=== PATIENT | female | born 1970 | race Caucasian/White ===

== ENCOUNTER 2019-10-03 09:48 | Emergency (ER) | payer BC, OTHER ==
[2019-10-03] MEDS ORDERED: Ketorolac 30 MG/ML SDV IVPUSH ONE (10:12)
[2019-10-03] MEDS ORDERED: Sodium Chloride 0.9% 1,000 ML IV ONE (10:12)
--- NOTE | 2019-10-03 10:23 | EDM.PDOC ---
ED HPI GENERAL MEDICAL PROBLEM - General Chief Complaint: [employer] Problem Stated Complaint: ABDOMINAL PAIN, BLEEDING Time Seen by Provider: 10/03/19 10:03 Source of Information: Reports: Patient History Limitations: Reports: No Limitations - History of Present Illness INITIAL COMMENTS - FREE TEXT/NARRATIVE: HISTORY AND PHYSICAL: History of present illness: Patient is a 49-year-old female who presents to the emergency room today with complaints of lower abdominal pain and heavy vaginal bleeding. She states this morning she started having some right lower quadrant pain/cramping and noticed vaginal bleeding. She states she saturated a heavy tampon within an hour and a half and noticed large clots in the toilet. She states she has not had a menstrual periods since August, decided take a test which was negative at home. Previously had normal menses. She did call her [employer] in [place] who rem commended she come to the emergency room to have an ultrasound and lab work. Patient has a history of an appendectomy, tubal ligation Review of systems: As per history of present illness and below otherwise all systems reviewed and negative. Past medical history: As per history of present illness and as reviewed below otherwise noncontributory. Surgical history: As per history of present illness and as reviewed below otherwise noncontributory. Social history: See social history for further information Family history: As per history of present illness and as reviewed below otherwise noncontributory. Physical exam: General: Well-developed and well-nourished 49-year-old female. Alert and oriented. Nontoxic-appearing and in no acute distress. HEENT: Atraumatic, normocephalic, pupils equal and reactive bilaterally, negative for conjunctival pallor or scleral icterus, mucous membranes moist, nontender, trachea midline. No drooling or trismus noted. No meningeal signs. No hot potato voice noted. Lungs: Clear to auscultation, breath sounds equal bilaterally, chest nontender. Heart: S1S2, regular rate and rhythm without overt murmur Abdomen: Soft, nondistended, mild right lower quadrant tenderness. Negative for masses or hepatosplenomegaly. Mild right sided costovertebral tenderness. Skin: Intact, warm, dry. No lesions or rashes noted. Extremities: Atraumatic, moves all extremities per self without difficulty or deficits, negative for cords or calf pain. Neurovascular unremarkable. Neuro: Awake, alert, oriented. Cranial nerves II through XII unremarkable. Cerebellum unremarkable. Motor and sensory unremarkable throughout. Exam nonfocal. Notes: Lab work is unremarkable with the exception of hypokalemia. She states she does not have any history of low potassium. Will supplement with a few days worth of K-Dur. Ultrasound shows 2.9 simple centimeter cyst on the right ovary. Patient states she has an [employer] in [place] whom she will follow up with this week. She states she has been taking ibuprofen and Tylenol routinely and is requesting something stronger for nighttime use. Medication education and supportive care measures were reviewed and discussed. Signs and symptoms that would prompt her to return to the emergency department were reviewed and discussed. Voices understanding and is agreeable to plan of care. Denies any further questions or concerns at this time. Diagnostics: CBC, CMP, UA, HCG, Pelvic ultrasound Therapeutics: IV fluid, Toradol Prescription: Diclofenac Vahid Impression: Ovarian cyst, Right Dysfunctional uterine bleeding Hypokalemia Plan: 1. Your lab work was normal with the exception of low potassium; please take the potassium replacement as directed and have this rechecked within the next few weeks. Your ultrasound showed a 2.9cm simple cyst on your right ovary; otherwise unremarkable. Please follow up with your OBGYN to have this re- evaluated along with your dysfucntional uterine bleeding. 2. Tylenol as needed for pain. Diclofenac as directed over the next few days. Do not take any additional NSAIDs such as ibuprofen or Aleve. [place] moderate to severe pain, reserve for nighttime use as this medication may cause drowsiness. 3. Return to the ED as needed and as discussed. Definitive disposition and diagnosis as appropriate pending reevaluation and review of above. Right Lower Abdominal Pain Score (Numeric/FACES): 10 - Related Data Allergies Allergy/AdvReac Type Severity Reaction Status Date / Time Penicillins Allergy Anaphylactic Verified 10/03/19 10:06 Shock Home Meds: Home Meds ALPRAZolam [Alprazolam] 0.5 mg PO BID 10/03/19 [History] Chlorthalidone 25 mg PO DAILY 10/03/19 [History] Diclofenac Sodium 50 mg PO TID PRN #20 tablet. 10/03/19 [Rx] Levothyroxine 75 mcg PO DAILY 10/03/19 [History] Losartan [Cozaar] 50 mg PO DAILY 10/03/19 [History] Phentermine HCl 37.5 mg PO DAILY 10/03/19 [History] Potassium Chloride [K-Tab ER] 20 meq PO BID 5 Days #10 tablet.er 10/03/19 [Rx] Rosuvastatin [Crestor] 5 mg PO DAILY 10/03/19 [History] traMADol [Ultram] 50 mg PO Q4H PRN #20 tab 10/03/19 [Rx] Past Medical History Cardiovascular History: Reports: High Cholesterol Psychiatric History: Reports: Anxiety - Infectious Disease History Infectious Disease History: Reports: None - Past Surgical History GI Surgical History: Reports: Appendectomy, Cholecystectomy Female Surgical History: Reports: Section, Tubal Ligation, Other ( See Below) Other Female Surgeries/Procedures: tubal reversal. eptopic Dermatological Surgical History: Reports: Other (See Below) Social & Family History - Family History Family Medical History: Noncontributory - Tobacco Use Smoking Status *Q: Never Smoker - Caffeine Use Caffeine Use: Reports: Coffee - Recreational Drug Use Recreational Drug Use: No ED ROS GENERAL - Review of Systems Review Of Systems: Comprehensive ROS is negative, except as noted in HPI. ED EXAM, RENAL/ - Physical Exam Exam: See Below (See dictation) Course - Vital Signs Last Recorded V/S: Last Vital Signs Temp 98.3 F 10/03/19 10:04 Pulse 88 10/03/19 10:04 Resp 18 10/03/19 10:04 BP 133/94 H 10/03/19 10:04 Pulse Ox 96 10/03/19 10:04 - Orders/Labs/Meds Orders: Active Orders 24 hr Category Date Time Status CULTURE URINE [RM] Stat Lab 10/03/19 10:00 Received Labs: Laboratory Tests 10/03/19 10/03/19 10/03/19 Range/Units 10:00 11:05 11:05 WBC 8.36 (4.0-11.0) K/uL RBC 3.94 L (4.30-5.90) M/uL Hgb 13.0 (12.0-16.0) g/dL Hct 38.7 (36.0-46.0) % MCV 98.2 H (80.0-98.0) fL MCH 33.0 H (27.0-32.0) pg MCHC 33.6 (31.0-37.0) g/dL RDW Std Deviation 45.1 (28.0-62.0) fl RDW Coeff of Cari 13 (11.0-15.0) % Plt Count 328 (150-400) K/uL MPV 9.40 (7.40-12.00) fL Neut % (Auto) 66.5 (48.0-80.0) % Lymph % (Auto) 19.3 (16.0-40.0) % [place] % (Auto) 9.2 (0.0-15.0) % Eos % (Auto) 4.8 (0.0-7.0) % Baso % (Auto) 0.2 (0.0-1.5) % Neut # (Auto) 5.6 (1.4-5.7) K/uL Lymph # (Auto) 1.6 (0.6-2.4) K/uL [place] # (Auto) 0.8 (0.0-0.8) K/uL Eos # (Auto) 0.4 (0.0-0.7) K/uL Baso # (Auto) 0.0 (0.0-0.1) K/uL Nucleated RBC % 0.0 /100WBC Nucleated RBCs # 0 K/uL Sodium 140 (136-145) mmol/L Potassium 2.9 L (3.5-5.1) mmol/L Chloride 99 (98-107) mmol/L Carbon Dioxide 29.9 (21.0-32.0) mmol/L BUN 14 (7.0-18.0) mg/dL Creatinine 0.8 (0.6-1.0) mg/dL Est Cr Clr Drug Dosing 65.80 mL/min Estimated GFR (MDRD) > 60.0 ml/min Glucose 105 (74-106) mg/dL Calcium 9.7 (8.5-10.1) mg/dL Total Bilirubin 0.4 (0.2-1.0) mg/dL AST 22 (15-37) IU/L ALT 38 (14-63) IU/L Alkaline Phosphatase 67 (46-116) U/L Total Protein 7.6 (6.4-8.2) g/dL Albumin 4.1 (3.4-5.0) g/dL Globulin 3.5 (2.6-4.0) g/dL Albumin/Globulin Ratio 1.2 (0.9-1.6) HCG, Qual (NEG) Urine Color YELLOW Urine Appearance CLOUDY Urine pH 7.5 (5.0-8.0) Ur Specific [place] 1.010 (1.001-1.035) Urine Protein NEGATIVE (NEGATIVE) mg/dL Urine Glucose (UA) NEGATIVE (NEGATIVE) mg/dL Urine Ketones NEGATIVE (NEGATIVE) mg/dL Urine Occult Blood LARGE H (NEGATIVE) Urine Nitrite NEGATIVE (NEGATIVE) Urine Bilirubin NEGATIVE (NEGATIVE) Urine Urobilinogen 0.2 (<2.0) EU/dL Ur Leukocyte Esterase SMALL H (NEGATIVE) Urine RBC 2-5 (0-2/HPF) Urine WBC 0-1 (0-5/HPF) Ur Epithelial Cells OCCASIONAL (NONE-FEW) Urine Bacteria RARE (NEGATIVE) 10/03/19 Range/Units 11:05 WBC (4.0-11.0) K/uL RBC (4.30-5.90) M/uL Hgb (12.0-16.0) g/dL Hct (36.0-46.0) % MCV (80.0-98.0) fL MCH (27.0-32.0) pg MCHC (31.0-37.0) g/dL RDW Std Deviation (28.0-62.0) fl RDW Coeff of Cari (11.0-15.0) % Plt Count (150-400) K/uL MPV (7.40-12.00) fL Neut % (Auto) (48.0-80.0) % Lymph % (Auto) (16.0-40.0) % [place] % (Auto) (0.0-15.0) % Eos % (Auto) (0.0-7.0) % Baso % (Auto) (0.0-1.5) % Neut # (Auto) (1.4-5.7) K/uL Lymph # (Auto) (0.6-2.4) K/uL [place] # (Auto) (0.0-0.8) K/uL Eos # (Auto) (0.0-0.7) K/uL Baso # (Auto) (0.0-0.1) K/uL Nucleated RBC % /100WBC Nucleated RBCs # K/uL Sodium (136-145) mmol/L Potassium (3.5-5.1) mmol/L Chloride (98-107) mmol/L Carbon Dioxide (21.0-32.0) mmol/L BUN (7.0-18.0) mg/dL Creatinine (0.6-1.0) mg/dL Est Cr Clr Drug Dosing mL/min Estimated GFR (MDRD) ml/min Glucose (74-106) mg/dL Calcium (8.5-10.1) mg/dL Total Bilirubin (0.2-1.0) mg/dL AST (15-37) IU/L ALT (14-63) IU/L Alkaline Phosphatase (46-116) U/L Total Protein (6.4-8.2) g/dL Albumin (3.4-5.0) g/dL Globulin (2.6-4.0) g/dL Albumin/Globulin Ratio (0.9-1.6) HCG, Qual NEGATIVE (NEG) Urine Color Urine Appearance Urine pH (5.0-8.0) Ur Specific [place] (1.001-1.035) Urine Protein (NEGATIVE) mg/dL Urine Glucose (UA) (NEGATIVE) mg/dL Urine Ketones (NEGATIVE) mg/dL Urine Occult Blood (NEGATIVE) Urine Nitrite (NEGATIVE) Urine Bilirubin (NEGATIVE) Urine Urobilinogen (<2.0) EU/dL Ur Leukocyte Esterase (NEGATIVE) Urine RBC (0-2/HPF) Urine WBC (0-5/HPF) Ur Epithelial Cells (NONE-FEW) Urine Bacteria (NEGATIVE) Meds: Medications Discontinued Medications Generic Name Dose Route Start Last Admin Trade Name Freq PRN Reason Stop Dose Admin Sodium Chloride 1,000 mls @ 999 mls/hr 10/03/19 10:12 10/03/19 11:01 Normal Saline IV 10/03/19 11:12 999 mls/hr STAT ONE Administration Ketorolac Tromethamine 30 mg 10/03/19 10:12 10/03/19 11:01 Toradol IVPUSH 10/03/19 10:13 30 mg ONETIME ONE Administration Potassium Chloride 40 meq 10/03/19 11:51 10/03/19 12:17 Klor-Con M20 PO 10/03/19 11:52 40 meq ONETIME ONE Administration Departure - Departure Time of Disposition: 12:15 Disposition: Home, Self-Care 01 Clinical Impression: Dysfunctional uterine bleeding, Hypokalemia Ovarian cyst Qualifiers: Laterality: right Qualified Code(s): N83.201 - Unspecified ovarian cyst, right side - Discharge Information Prescriptions: Diclofenac Sodium 50 mg PO TID PRN #20 tablet.dr PRN Reason: Pain Potassium Chloride [K-Tab ER] 20 meq PO BID 5 Days #10 tablet.er traMADol [Ultram] 50 mg PO Q4H PRN #20 tab PRN Reason: Pain Instructions: Hypokalemia, Ovarian Cyst, [id number], Dysfunctional Uterine Bleeding Referrals: Slime Thomas MD [Primary Care Provider] - Forms: ED Department Discharge Additional Instructions: The following information is given to patients seen in the emergency department who are being discharged to home. This information is to outline your options for follow-up care. We provide all patients seen in our emergency department with a follow-up referral. The need for follow-up, as well as the timing and circumstances, are variable depending upon the specifics of your emergency department visit. If you don't have a primary care physician on staff, we will provide you with a referral. We always advise you to contact your personal physician following an emergency department visit to inform them of the circumstance of the visit and for follow-up with them and/or the need for any referrals to a consulting specialist. The emergency department will also refer you to a specialist when appropriate. This referral assures that you have the opportunity for follow-up care with a specialist. All of these measure are taken in an effort to provide you with optimal care, which includes your follow-up. Under all circumstances we always encourage you to contact your private physician who remains a resource for coordinating your care. When calling for follow-up care, please make the office aware that this follow-up is from your recent emergency room visit. If for any reason you are refused follow-up, please contact the [facility] at and asked to speak to the emergency department charge nurse. [facility] [address] [place] [id number] [facility] [address] [place] [id number] 1. Your lab work was normal with the exception of low potassium; please take the potassium replacement as directed and have this rechecked within the next few weeks. Your ultrasound showed a 2.9cm simple cyst on your right ovary; otherwise unremarkable. Please follow up with your OBGYN to have this re- evaluated along with your dysfunctional uterine bleeding (Your OB may want to start you on hormone therapy). 2. Tylenol as needed for pain. Diclofenac as directed over the next few days. Do not take any additional NSAIDs such as ibuprofen or Aleve. [place] moderate to severe pain, reserve for nighttime use as this medication may cause drowsiness. 3. Return to the ED as needed and as discussed. Sepsis Event Note - Evaluation Sepsis Screening Result: No Definite Risk - Focused Exam Vital Signs: Vital Signs Temp Pulse Resp BP Pulse Ox 10/03/19 10:04 98.3 F 88 18 133/94 H 96 Date Exam was Performed: 10/03/19 Time Exam was Performed: 12:56 - My Orders Last 24 Hours: My Active Orders 10/03/19 10:00 CULTURE URINE [RM] Stat - Assessment/Plan Last 24 Hours: My Active Orders 10/03/19 10:00 CULTURE URINE [RM] Stat
[2019-10-03 11:45] LABS: BLOOD UREA NITROGEN,BUN 14 mg/dL (7.0-18.0); CARBON DIOXIDE,CO2 29.9 mmol/L (21.0-32.0); CHLORIDE,CL 99 mmol/L (98-107); GLUCOSE RANDOM 105 mg/dL (74-106); POTASSIUM,K 2.9 mmol/L (3.5-5.1); SODIUM,NA 140 mmol/L (136-145)
[2019-10-03] MEDS ORDERED: Potassium Chloride 20 MEQ Tab.ER PO ONE (11:51)
--- NOTE | 2019-10-03 12:04 | US ---
Pelvic ultrasound: Multiple real-time images were obtained transabdominally and transvaginally. Uterus is anteverted. No myometrial abnormality is seen. Nabothian cysts are present. Equivocal small cystic area within the lower uterine segment is seen and difficult to exclude very early . This is too small to see yolk sac or pole. Endometrial thickness is 7 mm. Left ovary not visualized due to bowel gas. Right ovary is seen and shows a 2.9 cm simple cyst which is likely physiologic. No free fluid is seen. Measurements: Uterus: Length 9.3 cm, AP height 5.5 cm, transverse width 5.9 cm Right ovary: 4.5 x 2.8 x 4.3 cm Impression: 1. Small cystic area within the lower uterine segment. Difficult to exclude very early . 2. Left ovary not visualized due to bowel gas. 3. Nabothian cysts are present. 4. 2.9 cm simple cyst within the right ovary. Diagnostic code #3 This report was dictated in [place] Standard Time
== END 2019-10-03 12:35 | disposition home or self-care (01) ==
LOC: MW.ED 09:48
DX: N83.201 Unspecified ovarian cyst, right side (principal); N93.8 Other specified abnormal uterine and vaginal bleeding; E87.6 Hypokalemia
CPT/HCPCS: 36415; 76856; 80053; 81001; 84703; 85025; 87086; 87088; 87186; 96361; 96374; 99284; A9270; J1885; J7030